=== PATIENT | male | born 1945 | race Caucasian/White ===

== ENCOUNTER → 2017-08-02 10:50 | Outpatient (CLI) | payer MEDICARE, OTHER, SELFPAY ==
[2017-08-02 13:10] LABS: BUN Creatinine Ratio 30.8 (6-22); Calcium 10.1 mg/dL (8.4-10.2); Estimated Glomerular Filt Rate 59.5 mL/min (>60); Glucose 169 mg/dL (80-110); HEMOLYSIS < 15 (0-50); Sodium 141 mmol/L (137-145)
[2017-08-02 13:19] LABS: Potassium 5.5 mmol/L (3.4-5.1)
== END ==
PROVIDERS: Visit Provider Urology
DX: E13.9 Other specified diabetes mellitus without complications (principal)
CPT/HCPCS: 36415; 80048

== ENCOUNTER → 2017-08-03 08:38 | Outpatient (CLI) | payer MEDICARE, OTHER, SELFPAY ==
--- NOTE | 2017-08-03 | DI.CT.S_ITS ---
PROCEDURE: CT ABDOMEN PELVIS WO/W CON INDICATIONS: GROSS HEMATURIA TECHNIQUE: Optional 5 mm thick noncontrast images acquired from the diaphragm to the symphysis pubis. After the administration of intravenous contrast, 5 mm thick images acquired from the diaphragm to the symphysis pubis after a 10-minute delay. 2 mm thick coronal and sagittal reformats were then performed of the kidneys and ureters. For radiation dose reduction, the following was used: automated exposure control, adjustment of mA and/or kV according to patient size. COMPARISON: None. FINDINGS: Image quality: Excellent. Lung bases: Lung bases are clear. Heart size is normal. Urinary system: Both kidneys are normal in size, without hydronephrosis on pre-contrast images. There is a finding of bilateral nonobstructive renal collecting system calculi, punctate at the lower third collecting system on the right but measuring up to 8 mm at the lower third collecting system on the left. Additional calculi are paired at the posterior calyx of the left mid kidney measuring 3 mm and 5 mm respectively. Additional punctate calculi are seen more superiorly within the medial and posterior calyces of the upper third of the left kidney. No perinephric fat stranding. There is normal bilateral renal enhancement. Renal calyces appear normal in morphology when filled with contrast. Opacified portions of both ureters demonstrate normal caliber. Bladder wall thickness is normal. No calcified bladder stones. Other solid organs: Liver is normal in size and enhancement. Gallbladder appears surgically absent. Biliary system is non dilated. Pancreas enhances normally. Spleen is normal in size and enhancement. No adrenal nodules. Peritoneum and bowel: Bowel loops demonstrate normal wall thickness and caliber. No free fluid or air. Nodes and vessels: No retroperitoneal or mesenteric adenopathy by size criteria. Aorta and inferior vena cava are normal in size. Abdominal wall: No ventral hernias. Pelvis: No pathologic free pelvic fluid. No inguinal hernias or adenopathy. Bones: No suspicious bony lesions. No vertebral body compression fractures. IMPRESSION: Bilateral renal calculi none of which appear obstructed if but which may be the etiology of the gross hematuria clinically reported. A renal cortical mass lesion is not found but there are several renal cortical cysts bilaterally, greater on the right than the left. A urothelial mass lesion is not seen. Note is made of radiation therapy seed implants within the prostate gland, without associated adenopathy or evidence of osseous metastatic disease. Dictated by: Johnathon Quiñonez M.D. on 08/03/2017 at 15:37 Approved by: Johnathon Quiñonez M.D. on 08/03/2017 at 15:40
== END ==
PROVIDERS: Visit Provider Family Medicine
DX: N20.0 Calculus of kidney (principal)
CPT/HCPCS: 74178; Q9967

== ENCOUNTER → 2017-09-26 14:25 | Outpatient (CLI) | payer MEDICARE, OTHER, SELFPAY ==
--- NOTE | 2017-09-26 | DI.RAD.S_ITS ---
PROCEDURE: XR ABDOMEN 1V INDICATIONS: KIDNEY CALCULLUS TECHNIQUE: One view of the abdomen acquired. COMPARISON: [facility], CT, CT ABDOMEN PELVIS WO/W CON, 08/03/2017, 8:55. FINDINGS: Surgical changes and devices: Cholecystectomy and prostate brachytherapy Bowel: Bowel gas pattern is normal. Soft tissues: No right renal calculi identified. There are small calcifications overlying the upper pole of the left kidney and a 7 mm calcification overlying the lower pole. Visualized solid organ contours appear normal in size. Bones: No suspicious bony lesions. IMPRESSION: Left nephrolithiasis Dictated by: Mitchell Salazar M.D. on 09/26/2017 at 14:47 Approved by: Mitchell Salazar M.D. on 09/26/2017 at 14:50
== END ==
PROVIDERS: Visit Provider Urology
DX: N20.0 Calculus of kidney (principal)
CPT/HCPCS: 74018

== ENCOUNTER → 2017-11-15 09:56 | Outpatient (CLI) | payer MEDICARE, OTHER, SELFPAY ==
--- NOTE | 2017-11-15 | DI.RAD.S_ITS ---
PROCEDURE: XR ABDOMEN 1V INDICATIONS: KIDNEY CALCULAS TECHNIQUE: One view of the abdomen acquired. COMPARISON: [facility], CT, CT ABDOMEN PELVIS WO/W CON, 08/03/2017, 8:55. [facility], CR, XR ABDOMEN 1V, 09/26/2017, 14:09. FINDINGS: Surgical changes and devices: The cholecystectomy clips and prosthetic metallic implants are noted. Bowel: Bowel gas pattern is normal. Soft tissues: Calcific densities projecting to the tear of the left kidney compatible with renal stones. Compared to the last exam on 09/26/2017, there is no significant change. Visualized solid organ contours appear normal in size. Bones: No suspicious bony lesions. Mild degenerative disc disease in the lower lumbar spine. IMPRESSION: Nephrolithiasis of the left kidney, minimally changed. Dictated by: Trina Garay M.D. on 11/15/2017 at 16:28 Approved by: Trina Garay M.D. on 11/15/2017 at 16:30
== END ==
PROVIDERS: Visit Provider Urology
DX: N20.0 Calculus of kidney (principal)
CPT/HCPCS: 74018

== ENCOUNTER → 2018-08-30 16:01 | Outpatient (CLI) | payer MEDICARE, OTHER, SELFPAY ==
[2018-08-30 17:22] LABS: BUN Creatinine Ratio 25.7 (6-22); Blood Urea Nitrogen 36 mg/dL (9-20); Calcium 10.4 mg/dL (8.4-10.2); Carbon Dioxide 27 mmol/L (22-32); Chloride 105 mmol/L (98-107); Estimated Glomerular Filt Rate 49.7 mL/min (>60); Glucose 177 mg/dL (80-110); HEMOLYSIS < 15 (0-50); Potassium 5.1 mmol/L (3.4-5.1); Sodium 140 mmol/L (137-145)
== END ==
PROVIDERS: Visit Provider Family Medicine
DX: E87.5 Hyperkalemia (principal)
CPT/HCPCS: 36415; 80048

== ENCOUNTER → 2019-04-13 14:04 | Outpatient (CLI) | payer MEDICARE, OTHER, SELFPAY ==
--- NOTE | 2019-04-13 | DI.US.S_ITS ---
PROCEDURE: US RENAL COMPLETE INDICATIONS: KIDNEY STONES TECHNIQUE: Real-time scanning was performed of the kidneys and bladder, with image documentation. COMPARISON: [facility], CT, CT ABDOMEN PELVIS WO/W CON, 08/03/2017, 8:55. FINDINGS: Kidneys: Kidneys are normal in size. Right kidney measures 13.1 cm long; left kidney measures 12.1 cm long. Right renal cortical thickness is 2.3 cm; left renal cortical thickness is 2.1 cm. Renal cortical echotexture is normal. No hydronephrosis bilaterally or nephrolithiasis on the right but there is a finding of 2 separate renal calculi without hydronephrosis on the left, involving the lower third collecting system measuring up to 1.4 cm in the superior third collecting system measuring up to 1.2 cm. No suspicious solid mass lesions. Bladder: Pre-void bladder volume is 99 mL. Post-void residual is slightly larger because the patient was unable to voluntarily void. Pre-void images demonstrate no intraluminal masses or stones. On pre-void images, neither ureteral jets are noted with color Doppler interrogation. (Of note, ureteral jets may not be detectable in up to 25% of cases due to insufficient differences in specific gravity between ureteral and bladder urine). Miscellaneous: No free pelvic fluid. IMPRESSION: 2 stones are present without obstruction involving the collecting system of the left kidney. No hydronephrosis bilaterally. Note is made of no identifiable stones at the right collecting system are not the 2 on the left range in size from 1.2-1.4 cm. The bladder is not distended at the beginning of the study, the patient could not voluntarily void. Dictated by: Johnathon Quiñonez M.D. on 04/13/2019 at 16:57 Approved by: Johnathon Quiñonez M.D. on 04/13/2019 at 17:03
== END ==
PROVIDERS: PCP Family Medicine; Visit Provider Urology
DX: N20.0 Calculus of kidney (principal); N28.89 Other specified disorders of kidney and ureter
CPT/HCPCS: 76770

== ENCOUNTER → 2019-05-04 16:50 | Outpatient (CLI) | payer MEDICARE, OTHER, SELFPAY ==
[2019-05-04 19:19] LABS: Cholesterol 155 mg/dL (140-199); HDL Cholesterol 27 mg/dL (40-60); LDL Cholesterol Calculated 58 mg/dL (<100); Triglycerides 348 mg/dL (35-150)
== END ==
PROVIDERS: Family Provider Internal Medicine Cardiovascular Disease; PCP Family Medicine; Referring Provider Internal Medicine Cardiovascular Disease; Visit Provider Internal Medicine Cardiovascular Disease
DX: E78.5 Hyperlipidemia, unspecified (principal)
CPT/HCPCS: 36415; 80061

== ENCOUNTER → 2019-05-08 14:58 | Outpatient (CLI) | payer MEDICARE, OTHER, SELFPAY ==
--- NOTE | 2019-05-08 | DI.CT.S_ITS ---
PROCEDURE: CT ABDOMEN PELVIS WO/W CON INDICATIONS: Cyst of kidney, aquired TECHNIQUE: Optional 5 mm thick noncontrast images acquired from the diaphragm to the symphysis pubis. After the administration of intravenous contrast, 5 mm thick images acquired from the diaphragm to the symphysis pubis after a 10-minute delay. 2 mm thick coronal and sagittal reformats were then performed of the kidneys and ureters. For radiation dose reduction, the following was used: automated exposure control, adjustment of mA and/or kV according to patient size. COMPARISON: [facility], CT, CT ABDOMEN PELVIS WO/W CON, 08/03/2017, 8:55. FINDINGS: Image quality: Excellent. Lung bases: Lung bases are clear. Heart size is normal. Urinary system: Both kidneys are normal in size, without hydronephrosis. There is a finding of bilateral nephrolithiasis on the pre-contrast images, equivalent to that previously present in July of 2017. None of the visualized calculi appear obstructive. The largest calculus is located within the lower third collecting system of the left kidney. Measuring up to 1 cm. Several bilateral renal cortical cysts are again seen including a hyperdense cyst located at the posterolateral cortex of the right mid kidney, best seen on postcontrast imaging series 3 image 87. No left-sided perinephric fat stranding but there is stranding on the right which may indicate recent passage of a calculus. There is normal bilateral renal enhancement. Renal calyces appear normal in morphology when filled with contrast. Opacified portions of both ureters demonstrate normal caliber. Bladder wall thickness is normal. No calcified bladder stones. Other solid organs: Liver is normal in size and enhancement. Gallbladder has been previously resected. Biliary system is non dilated. Pancreas enhances normally. Spleen is normal in size and enhancement. No adrenal nodules. Peritoneum and bowel: Bowel loops demonstrate normal wall thickness and caliber. No free fluid or air. Nodes and vessels: No retroperitoneal or mesenteric adenopathy by size criteria. Aorta and inferior vena cava are normal in size. Abdominal wall: No ventral hernias. Pelvis: No pathologic free pelvic fluid. No inguinal hernias or adenopathy. Prostate gland radiation therapy seeds again noted within the pelvis which is normal in size. Bones: No suspicious bony lesions. No vertebral body compression fractures. IMPRESSION: 1. Bilateral nonobstructive renal collecting system calculi, the largest of which is located on the left measuring up to 1 cm. 2. There is a moderate degree of perinephric edema at the right kidney, none on the left. The appearance raises the question of whether there has been recent passage of a calculus on the right producing that appearance. Renal inflammation of any etiology could produce such an appearance, however. 3. Prostate radiation therapy seed implants noted at the midline of the low pelvis, without evidence of associated adenopathy or osseous metastatic disease. Dictated by: Johnathon Quiñonez M.D. on 05/08/2019 at 17:19 Approved by: Johnathon Quiñonez M.D. on 05/08/2019 at 17:27
== END ==
PROVIDERS: Family Provider Internal Medicine Cardiovascular Disease; PCP Family Medicine; Referring Provider Urology; Visit Provider Urology
DX: N28.1 Cyst of kidney, acquired (principal); N20.0 Calculus of kidney
CPT/HCPCS: 36415; 74178; 82565; Q9967

== ENCOUNTER → 2019-12-04 14:29 | Outpatient (CLI) | payer MEDICARE, OTHER, SELFPAY ==
--- NOTE | 2019-12-04 | DI.US.S_ITS ---
PROCEDURE: US RENAL COMPLETE INDICATIONS: KIDNEY STONE TECHNIQUE: Real-time scanning was performed of the kidneys and bladder, with image documentation. Note: Exam is somewhat limited due to body habitus and bowel gas. COMPARISON: [facility], CT, CT ABDOMEN PELVIS WO/W CON, 08/03/2017, 8:55. [facility], CT, CT ABDOMEN PELVIS WO/W CON, 05/08/2019, 15:42. [facility], US, US RENAL COMPLETE, 04/13/2019, 14:22. FINDINGS: Kidneys: Kidneys are normal in size. Right kidney measures 13.9 cm long; left kidney measures 13.3 cm long. Right renal cortical thickness is 1.9 cm; left renal cortical thickness is 1.7 cm. Right kidney midpole hypoechoic cyst measuring at 2.2 x 2.2 x 1.9 cm. No internal blood flow is seen. Right kidney inferior pole hypoechoic cyst measuring 2 x 1.9 x 1.9 cm. No internal blood flow. Left mid kidney cortical cyst measuring 1.2 x 1.2 x 1 cm. No internal vascularity. No hydronephrosis. A 1.1 cm and 1.7 cm calcification at the inferior and superior pole of the left kidney respectively. Bladder: Pre-void bladder volume is 378 mL. Post-void residual is 112 mL. Pre-void images demonstrate no intraluminal masses or stones. On pre-void images, bilateral ureteral jets are noted with color Doppler interrogation. (Of note, ureteral jets may not be detectable in up to 25% of cases due to insufficient differences in specific gravity between ureteral and bladder urine). Miscellaneous: No free pelvic fluid. IMPRESSION: Exam is somewhat limited due to acoustic windows and body habitus. 1. No hydronephrosis. 2. Postvoid residual 112 cc. 3. Left kidney stones are again seen. Previously seen right kidney stone is not excluded. -if clinically indicated noncontrast CT could be performed. 4. Small mildly complex cysts bilaterally. These appeared similar on the prior CTs from April 2019 and July 2017. -Consider continued surveillance with CT or MRI. Dictated by: Dennis Petty M.D. on 12/05/2019 at 13:16 Approved by: Dennis Petty M.D. on 12/05/2019 at 13:27
== END ==
PROVIDERS: Family Provider Internal Medicine Cardiovascular Disease; PCP Family Medicine; Referring Provider Urology; Visit Provider Urology
DX: N20.0 Calculus of kidney (principal); N28.1 Cyst of kidney, acquired
CPT/HCPCS: 76770

== ENCOUNTER → 2020-01-09 11:53 | Outpatient (CLI) | payer MEDICARE, OTHER, SELFPAY ==
[2020-01-09 13:18] LABS: Hemoglobin A1C% w Est Avg Glu 7.9 % (4.0-6.0)
[2020-01-09 14:04] LABS: BUN Creatinine Ratio 22.4 (6-22); Blood Urea Nitrogen 37 mg/dL (9-20); Calcium 9.7 mg/dL (8.4-10.2); Carbon Dioxide 27 mmol/L (22-32); Chloride 105 mmol/L (98-107); Estimated Glomerular Filt Rate 40.9 mL/min (>60); Glucose 99 mg/dL (80-110); HEMOLYSIS < 15 (0-50); Potassium 4.5 mmol/L (3.4-5.1); Sodium 140 mmol/L (137-145)
[2020-01-09 16:05] LABS: Creatinine Urine Random 82.2 mg/dL
[2020-01-09 16:20] LABS: Microalbumi Creatinin Ratio Ur 587.5 ug/mg CR (<30); Microalbumin Urine Random 48.3 mg/dL (0-1.6)
== END ==
PROVIDERS: Family Provider Internal Medicine Cardiovascular Disease; PCP Family Medicine; Referring Provider Family Medicine; Visit Provider Family Medicine
DX: E11.9 Type 2 diabetes mellitus without complications (principal); R80.9 Proteinuria, unspecified; Z79.4 Long term (current) use of insulin
CPT/HCPCS: 36415; 80048; 82043; 82570; 83036

== ENCOUNTER → 2020-02-19 09:24 | Outpatient (CLI) | payer MEDICARE, OTHER, SELFPAY ==
[2020-02-19 09:55] LABS: Bacteria Urine None Seen; RBC Urine None Seen (0-5/HPF); WBC Urine None Seen (0-5/HPF)
[2020-02-19 12:15] LABS: Hematocrit 38.9 % (41-53); Hemoglobin 13.1 g/dL (13.5-17.5)
[2020-02-19 12:47] LABS: Blood Urea Nitrogen 37 mg/dL (9-20); Carbon Dioxide 28 mmol/L (22-32); Chloride 102 mmol/L (98-107); Estimated Glomerular Filt Rate 37.9 mL/min (>60); Glucose 121 mg/dL (80-110); HEMOLYSIS < 15 (0-50); Potassium 4.2 mmol/L (3.4-5.1); Sodium 138 mmol/L (137-145)
[2020-02-19 13:09] LABS: Appearance Urine UA CLEAR; Bilirubin Urine UA NEGATIVE (NEGATIVE); Color Urine UA YELLOW; Glucose Urine UA NEGATIVE (Negative); Ketones Urine UA NEGATIVE (NEGATIVE); Leukocyte Esterase Urine UA NEGATIVE (NEGATIVE); Nitrite Urine UA NEGATIVE (Negative); Occult Blood Urine UA NEGATIVE (Negative); Protein Urine UA 2+ (Negative); Specific Gravity Urine UA 1.025 (1.000-1.035); Urobilinogen Urine UA 0.2 E.U./dL (0.2); pH Urine UA 5.5 (4.5-8.0)
[2020-02-19 13:28] LABS: Culture Indicated Urine Cult Not Indicated; Squamous Epithelial Cell Urine 1-5 /HPF (0-5/HPF)
[2020-02-19 14:43] LABS: Creatinine Urine Random 129.5 mg/dL; Protein (Total) Urine Random 94 mg/dL (0-12); Protein Creatinine Ratio Urine 0.72 GRAM/24H
[2020-02-20 10:03] LABS: Parathyroid Hormone Int 41 pg/mL (15-65)
== END ==
PROVIDERS: Family Provider Internal Medicine Cardiovascular Disease; PCP Family Medicine; Referring Provider Student in an Organized Health Care Education/Training Program; Visit Provider Student in an Organized Health Care Education/Training Program
DX: N05.9 Unspecified nephritic syndrome with unspecified morphologic changes (principal); N30.00 Acute cystitis without hematuria; R80.9 Proteinuria, unspecified; D64.9 Anemia, unspecified; N25.81 Secondary hyperparathyroidism of renal origin
CPT/HCPCS: 36415; 80048; 81001; 82570; 83970; 84156; 85014; 85018; 87086

== ENCOUNTER → 2020-04-30 14:05 | Outpatient (CLI) | payer MEDICARE, OTHER, SELFPAY ==
[2020-04-30 16:10] LABS: Hematocrit 40.6 % (41-53); Hemoglobin 13.4 g/dL (13.5-17.5)
[2020-04-30 16:24] LABS: BUN Creatinine Ratio 24.4 (6-22); Blood Urea Nitrogen 41 mg/dL (9-20); Calcium 9.6 mg/dL (8.4-10.2); Carbon Dioxide 30 mmol/L (22-32); Chloride 100 mmol/L (98-107); Glucose 142 mg/dL (80-110); HEMOLYSIS 28 (0-50); Potassium 4.6 mmol/L (3.4-5.1); Sodium 138 mmol/L (137-145)
[2020-04-30 17:33] LABS: Creatinine Urine Random 33.8 mg/dL; Protein (Total) Urine Random 40 mg/dL (0-12); Protein Creatinine Ratio Urine 1.18 GRAM/24H
== END ==
PROVIDERS: Family Provider Internal Medicine Cardiovascular Disease; PCP Family Medicine; Referring Provider Student in an Organized Health Care Education/Training Program; Visit Provider Student in an Organized Health Care Education/Training Program
DX: R80.9 Proteinuria, unspecified (principal); N05.9 Unspecified nephritic syndrome with unspecified morphologic changes; D64.9 Anemia, unspecified
CPT/HCPCS: 36415; 80048; 82570; 84156; 85014; 85018

== ENCOUNTER → 2020-05-13 13:40 | Outpatient (CLI) | payer MEDICARE, OTHER, SELFPAY ==
--- NOTE | 2020-05-13 | DI.CT.S_ITS ---
PROCEDURE: CT CHEST HIGH RESOLUTION INDICATIONS: Interstitial pulmonary disease, unspecified TECHNIQUE: Noncontrast 1.0 and 5.0 mm thick contiguous axial sections from the pulmonary apex to the posterior costophrenic angles, with 7 mm thick coronal and sagittal MIP reformats. 1 mm thick dynamic expiratory images acquired through the upper, mid, and lower lungs. 1.0 mm thick axial sections acquired from the aracelis to the posterior costophrenic angles in the prone end-inspiration position. For radiation dose reduction, the following was used: automated exposure control, adjustment of mA and/or kV according to patient size. COMPARISON: [facility], CT, CT ABDOMEN PELVIS WO/W CON, 08/03/2017, 8:55. FINDINGS: Image quality: Excellent. Lungs: There is a mild appearance of emphysematous changes. 3 mm lateral left upper lobe pleural nodule is present on series 3, image 134. 4 mm nodule is present in the right lower lobe on series 3, image 180. 3 mm right lower lobe nodule on series 3, image 212 is unchanged compared to 2018. There is a mildly prominent appearance of reticular change within the bases bilaterally as well as the lateral aspect of the right middle lobe. Minimal appearance of scattered bronchial wall thickening is present. Pleura: No pleural effusions or pneumothorax. Mediastinum: Heart size is normal. No pericardial effusion. Thoracic aorta demonstrates mild aneurysmal dilation within the ascending portion measuring 44 mm. Esophagus is normal in caliber. Bones and chest wall: No suspicious bony lesions. No vertebral body compression fractures. Abdomen: Visualized upper abdominal solid organs and bowel loops appear normal. IMPRESSION: 1. Emphysematous changes with areas of reticular opacities as to cry be above, suggestive of fibrotic change. 2. Subcentimeter nodules as above without priors available for comparison except as noted. There overall nonspecific and recommend interval follow-up below based on size and initial visualization date. 3. Aneurysmal dilation of the ascending thoracic aorta. Recommend continued interval follow-up to document stability, given no priors are available for comparison. Fleischner Society criteria for SOLID lung nodule followup. Nodule size (mm)Low-risk patientHigh-risk patient<6 (single or multiple)No routine followup.Optional CT at 12 months. 6-8 (single or multiple)CT at 6-12 months, then optional CT at 18-24 mo.CT at 6-12 months, then CT at 18-24 months. >8 (single)CT, PET-CT, or biopsy at 3 months. Same as for low-risk pts. >8 (multiple)CT at 3-6 months, then optional CT at 18-24 mo.CT at 3-6 months, then CT at 18-24 months. Recommendations do not apply to lung cancer screening, patients with immunosuppression, or patients with known primary cancer. Dictated by: Andreina Foster M.D. on 05/13/2020 at 18:05 Approved by: Andreina Foster M.D. on 05/13/2020 at 18:08
== END ==
PROVIDERS: Family Provider Internal Medicine Cardiovascular Disease; PCP Family Medicine; Referring Provider Internal Medicine Pulmonary Disease; Visit Provider Internal Medicine Pulmonary Disease
DX: J84.9 Interstitial pulmonary disease, unspecified (principal); R91.8 Other nonspecific abnormal finding of lung field; I71.2 Thoracic aortic aneurysm, without rupture
CPT/HCPCS: 71250

== ENCOUNTER → 2020-06-04 18:10 | Outpatient (CLI) | payer MEDICARE, OTHER, SELFPAY | PROVIDERS: Family Provider Internal Medicine Cardiovascular Disease; PCP Family Medicine; Visit Provider Student in an Organized Health Care Education/Training Program | DX: L02.416 Cutaneous abscess of left lower limb (principal); L03.116 Cellulitis of left lower limb | CPT/HCPCS: 87070; 87075; 87077; 87147; 87186; 87205 ==

== ENCOUNTER → 2020-06-26 09:24 | Outpatient (CLI) | payer MEDICARE, OTHER, SELFPAY | PROVIDERS: Family Provider Internal Medicine Cardiovascular Disease; PCP Family Medicine; Referring Provider Physician Assistant; Visit Provider Family Medicine | DX: I87.2 Venous insufficiency (chronic) (peripheral) (principal); N18.31 Chronic kidney disease, stage 3a; E11.22 Type 2 diabetes mellitus with diabetic chronic kidney disease; R60.0 Localized edema; Z87.891 Personal history of nicotine dependence; I12.9 Hypertensive chronic kidney disease with stage 1 through stage 4 chronic kidney disease, or unspecified chronic kidney disease | CPT/HCPCS: 99204; 99213 ==

== ENCOUNTER → 2020-08-30 09:13 | Outpatient (CLI) | payer MEDICARE, OTHER, SELFPAY ==
[2020-08-30 10:36] LABS: BUN Creatinine Ratio 21.8 (6-22); Blood Urea Nitrogen 53 mg/dL (9-20); Calcium 9.9 mg/dL (8.4-10.2); Carbon Dioxide 26 mmol/L (22-32); Chloride 100 mmol/L (98-107); Estimated Glomerular Filt Rate 26.1 mL/min (>60); Glucose 108 mg/dL (80-110); HEMOLYSIS 20 (0-50); Sodium 136 mmol/L (137-145)
[2020-08-30 10:38] LABS: Creatinine Urine Random 114.1 mg/dL; Protein (Total) Urine Random 18 mg/dL (0-12); Protein Creatinine Ratio Urine 0.15 GRAM/24H
[2020-08-30 10:39] LABS: Potassium 5.6 mmol/L (3.4-5.1)
[2020-08-31 17:48] LABS: Parathyroid Hormone Int 35 pg/mL (15-65)
== END ==
PROVIDERS: Family Provider Internal Medicine Cardiovascular Disease; PCP Family Medicine; Referring Provider Student in an Organized Health Care Education/Training Program; Visit Provider Student in an Organized Health Care Education/Training Program
DX: N05.9 Unspecified nephritic syndrome with unspecified morphologic changes (principal); N25.81 Secondary hyperparathyroidism of renal origin; R80.9 Proteinuria, unspecified
CPT/HCPCS: 36415; 80048; 82570; 83970; 84156

== ENCOUNTER → 2020-09-05 16:26 | Outpatient (CLI) | payer MEDICARE, OTHER, SELFPAY ==
[2020-09-05 17:51] LABS: BUN Creatinine Ratio 22.8 (6-22); Blood Urea Nitrogen 55 mg/dL (9-20); Calcium 9.5 mg/dL (8.4-10.2); Carbon Dioxide 27 mmol/L (22-32); Chloride 101 mmol/L (98-107); Estimated Glomerular Filt Rate 26.4 mL/min (>60); Glucose 143 mg/dL (80-110); HEMOLYSIS < 15 (0-50); Potassium 4.8 mmol/L (3.4-5.1); Sodium 139 mmol/L (137-145)
== END ==
PROVIDERS: Family Provider Internal Medicine Cardiovascular Disease; PCP Family Medicine; Referring Provider Student in an Organized Health Care Education/Training Program; Visit Provider Student in an Organized Health Care Education/Training Program
DX: N05.9 Unspecified nephritic syndrome with unspecified morphologic changes (principal)
CPT/HCPCS: 36415; 80048

== ENCOUNTER → 2020-09-22 07:10 | Outpatient (CLI) | payer MEDICARE, OTHER, SELFPAY ==
[2020-09-22 08:11] LABS: Hematocrit 36.8 % (41-53); Hemoglobin 12.2 g/dL (13.5-17.5)
[2020-09-22 08:41] LABS: BUN Creatinine Ratio 24.8 (6-22); Blood Urea Nitrogen 39 mg/dL (9-20); Carbon Dioxide 27 mmol/L (22-32); Chloride 105 mmol/L (98-107); Estimated Glomerular Filt Rate 43.3 mL/min (>60); Glucose 159 mg/dL (80-110); HEMOLYSIS < 15 (0-50); Potassium 4.9 mmol/L (3.4-5.1); Sodium 140 mmol/L (137-145)
== END ==
PROVIDERS: Family Provider Internal Medicine Cardiovascular Disease; PCP Family Medicine; Referring Provider Student in an Organized Health Care Education/Training Program; Visit Provider Student in an Organized Health Care Education/Training Program
DX: N05.9 Unspecified nephritic syndrome with unspecified morphologic changes (principal); D64.9 Anemia, unspecified
CPT/HCPCS: 36415; 80048; 85014; 85018

== ENCOUNTER → 2021-03-05 09:11 | Outpatient (CLI) | payer MEDICARE, OTHER, SELFPAY ==
--- NOTE | 2021-03-05 | DI.US.S_ITS ---
PROCEDURE: US RENAL COMPLETE INDICATIONS: Calculus of kidney TECHNIQUE: Real-time scanning was performed of the kidneys and bladder, with image documentation. COMPARISON: [facility], CT, CT ABDOMEN PELVIS WO/W CON, 05/08/2019, 15:42. [facility], US, US RENAL COMPLETE, 12/04/2019, 14:57. [facility], , US RENAL COMPLETE, 04/13/2019, 14:22. FINDINGS: Kidneys: Kidneys are normal in size. Right kidney measures 13.3 cm long; left kidney measures 12.1 cm long. Right renal cortical thickness is 1.8 cm; left renal cortical thickness is 1.9 cm. Renal cortical echotexture is normal. No hydronephrosis. Several small right renal cysts. Superior pole 2.6 cm. Inferior pole 2.4 cm. Medial simple 5.5 cm. Left kidney mid pole hypoechoic cyst measuring 1.4 cm. Several left kidney stones measuring 1.4 cm, 1.5 cm, 1.5 cm. Bladder: Pre-void bladder volume is 647 mL. Post-void residual is 0 mL. Pre-void images demonstrate no intraluminal masses or stones. Ureteral jets are not seen. Miscellaneous: No free pelvic fluid. IMPRESSION: 1. At least 3 left Kidney stones are seen. A larger stone measuring 1.5 cm. 2. Right kidney hypoechoic cysts x2 and 1 on the left. Largest measuring 2.6 cm. The cysts on the right appear to be slightly increased in size compared to the prior ultrasound. -Recommend further evaluation with renal protocol CT or MRI to evaluate for enhancement. 3. No significant postvoid residual demonstrated. Dictated by: Dennis Petty M.D. on 03/05/2021 at 10:32 Approved by: Dennis Petty M.D. on 03/05/2021 at 10:45
== END ==
PROVIDERS: Family Provider Internal Medicine Cardiovascular Disease; PCP Family Medicine; Referring Provider Urology; Visit Provider Urology
DX: N20.0 Calculus of kidney (principal); N28.1 Cyst of kidney, acquired
CPT/HCPCS: 76770

== ENCOUNTER → 2021-05-28 16:20 | Outpatient (CLI) | payer MEDICARE, OTHER, SELFPAY ==
[2021-05-28 17:23] LABS: Hematocrit 39.5 % (41-53); Hemoglobin 13.2 g/dL (13.5-17.5)
[2021-05-28 17:50] LABS: Alanine Aminotransferase 30 IU/L (<50); Albumin 4.1 g/dL (3.5-5.0); Albumin Globulin Ratio 1.3 (1.0-2.8); Alkaline Phosphatase 105 U/L (38-126); Aspartate Aminotransferase 30 IU/L (17-59); BUN Creatinine Ratio 16.8 (6-22); Bilirubin Total 0.7 mg/dL (0.2-1.3); Blood Urea Nitrogen 23 mg/dL (9-20); Calcium 9.3 mg/dL (8.4-10.2); Carbon Dioxide 32 mmol/L (22-32); Chloride 102 mmol/L (98-107); Estimated Glomerular Filt Rate 50.5 mL/min (>60); Globulin 3.1 g/dL (1.7-4.1); Glucose 162 mg/dL (80-110); HEMOLYSIS < 15 (0-50); Potassium 4.6 mmol/L (3.4-5.1); Sodium 139 mmol/L (137-145); Total Protein 7.2 g/dL (6.3-8.2)
[2021-05-28 17:51] LABS: Creatinine Urine Random 75.8 mg/dL; Protein (Total) Urine Random 51 mg/dL (0-12); Protein Creatinine Ratio Urine 0.67 GRAM/24H
[2021-05-29 10:19] LABS: Parathyroid Hormone Int 63 pg/mL (15-65)
== END ==
PROVIDERS: Family Provider Internal Medicine Cardiovascular Disease; PCP Family Medicine; Referring Provider Student in an Organized Health Care Education/Training Program; Visit Provider Student in an Organized Health Care Education/Training Program
DX: E11.22 Type 2 diabetes mellitus with diabetic chronic kidney disease (principal); N18.32 Chronic kidney disease, stage 3b; Z79.4 Long term (current) use of insulin; N25.81 Secondary hyperparathyroidism of renal origin; D64.9 Anemia, unspecified; N05.9 Unspecified nephritic syndrome with unspecified morphologic changes; R80.9 Proteinuria, unspecified
CPT/HCPCS: 36415; 80053; 82570; 83036; 83970; 84156; 85014; 85018

== ENCOUNTER → 2021-10-06 16:52 | Outpatient (CLI) | payer MEDICARE, OTHER, SELFPAY ==
[2021-10-06 17:42] LABS: BUN Creatinine Ratio 22.9 (6-22); Blood Urea Nitrogen 36 mg/dL (9-20); Calcium 8.9 mg/dL (8.4-10.2); Carbon Dioxide 28 mmol/L (22-32); Chloride 103 mmol/L (98-107); Estimated Glomerular Filt Rate 45 mL/min (>60); Glucose 164 mg/dL (80-110); HEMOLYSIS < 15 (0-50); Potassium 4.6 mmol/L (3.4-5.1); Sodium 137 mmol/L (137-145)
[2021-10-06 18:04] LABS: Creatinine Urine Random 97.8 mg/dL; Protein (Total) Urine Random 19 mg/dL (0-12); Protein Creatinine Ratio Urine 0.19 GRAM/24H
== END ==
PROVIDERS: Family Provider Internal Medicine Cardiovascular Disease; Referring Provider Student in an Organized Health Care Education/Training Program; Visit Provider Student in an Organized Health Care Education/Training Program
DX: N05.9 Unspecified nephritic syndrome with unspecified morphologic changes (principal); R80.9 Proteinuria, unspecified
CPT/HCPCS: 36415; 80048; 82570; 84156

== ENCOUNTER → 2021-11-17 12:36 | Outpatient (CLI) | payer MEDICARE, OTHER, SELFPAY ==
[2021-11-17 14:31] LABS: BUN Creatinine Ratio 19.9 (6-22); Blood Urea Nitrogen 32 mg/dL (9-20); Calcium 8.7 mg/dL (8.4-10.2); Carbon Dioxide 23 mmol/L (22-32); Chloride 106 mmol/L (98-107); Estimated Glomerular Filt Rate 44 mL/min (>60); Glucose 127 mg/dL (80-110); HEMOLYSIS < 15 (0-50); Potassium 4.7 mmol/L (3.4-5.1); Sodium 138 mmol/L (137-145)
== END ==
PROVIDERS: Family Provider Internal Medicine Cardiovascular Disease; Referring Provider Student in an Organized Health Care Education/Training Program; Visit Provider Student in an Organized Health Care Education/Training Program
DX: N05.9 Unspecified nephritic syndrome with unspecified morphologic changes (principal)
CPT/HCPCS: 36415; 80048

== ENCOUNTER → 2022-03-24 10:37 | Outpatient (CLI) | payer MEDICARE, OTHER, SELFPAY ==
[2022-03-24 11:51] LABS: Hematocrit 46.3 % (41-53); Hemoglobin 15.1 g/dL (13.5-17.5)
[2022-03-24 12:16] LABS: Blood Urea Nitrogen 27 mg/dL (9-20); Calcium 9.3 mg/dL (8.4-10.2); Carbon Dioxide 29 mmol/L (22-32); Chloride 102 mmol/L (98-107); Estimated Glomerular Filt Rate 51 mL/min (>60); Glucose 143 mg/dL (80-110); HEMOLYSIS < 15 (0-50); Potassium 4.7 mmol/L (3.4-5.1); Sodium 142 mmol/L (137-145)
[2022-03-24 12:18] LABS: Protein (Total) Urine Random 78 mg/dL (0-12); Protein Creatinine Ratio Urine 1.04 GRAM/24H
[2022-03-26 11:08] LABS: Parathyroid Hormone Int 70 pg/mL (15-65)
== END ==
PROVIDERS: Family Provider Internal Medicine Cardiovascular Disease; Referring Provider Student in an Organized Health Care Education/Training Program; Visit Provider Student in an Organized Health Care Education/Training Program
DX: N05.9 Unspecified nephritic syndrome with unspecified morphologic changes (principal); D64.9 Anemia, unspecified; R80.9 Proteinuria, unspecified; N25.81 Secondary hyperparathyroidism of renal origin
CPT/HCPCS: 36415; 80048; 82570; 83970; 84156; 85014; 85018

== ENCOUNTER → 2022-05-03 10:59 | Outpatient (CLI) | payer MEDICARE, OTHER, SELFPAY ==
[2022-05-03 12:50] LABS: BUN Creatinine Ratio 26.2 (6-22); Blood Urea Nitrogen 43 mg/dL (9-20); Calcium 9.5 mg/dL (8.4-10.2); Carbon Dioxide 30 mmol/L (22-32); Chloride 99 mmol/L (98-107); Estimated Glomerular Filt Rate 43 mL/min (>60); Glucose 120 mg/dL (80-110); HEMOLYSIS < 15 (0-50); Potassium 4.9 mmol/L (3.4-5.1); Sodium 138 mmol/L (137-145)
[2022-05-03 15:02] LABS: Creatinine Urine Random 84.5 mg/dL; Protein (Total) Urine Random 30 mg/dL (0-12); Protein Creatinine Ratio Urine 0.35 GRAM/24H
== END ==
PROVIDERS: Family Provider Internal Medicine Cardiovascular Disease; Referring Provider Student in an Organized Health Care Education/Training Program; Visit Provider Student in an Organized Health Care Education/Training Program
DX: N05.9 Unspecified nephritic syndrome with unspecified morphologic changes (principal); R80.9 Proteinuria, unspecified
CPT/HCPCS: 36415; 80048; 82570; 84156

== ENCOUNTER → 2022-08-02 09:45 | Outpatient (CLI) | payer MEDICARE, OTHER, SELFPAY ==
[2022-08-02 10:20] LABS: Hematocrit 42.3 % (41-53); Hemoglobin 14.5 g/dL (13.5-17.5)
[2022-08-02 10:28] LABS: BUN Creatinine Ratio 22.6 (6-22); Blood Urea Nitrogen 40 mg/dL (9-20); Calcium 9.1 mg/dL (8.4-10.2); Carbon Dioxide 28 mmol/L (22-32); Chloride 104 mmol/L (98-107); Cholesterol 130 mg/dL (140-199); Estimated Glomerular Filt Rate 39 mL/min (>60); Glucose 117 mg/dL (80-110); HDL Cholesterol 27 mg/dL (40-60); HEMOLYSIS < 15 (0-50); LDL Cholesterol Calculated 63 mg/dL (<100); Potassium 4.9 mmol/L (3.4-5.1); Sodium 138 mmol/L (137-145); Triglycerides 199 mg/dL (35-150)
[2022-08-02 11:08] LABS: Creatinine Urine Random 91.8 mg/dL; Protein (Total) Urine Random 35 mg/dL (0-12); Protein Creatinine Ratio Urine 0.38 GRAM/24H
[2022-08-03 03:36] LABS: x Labcorp Estim. Avg Glu (eAG) 137 mg/dL (.); x Labcorp Hemoglobin A1c 6.4 % (4.8-5.6)
[2022-08-04 11:20] LABS: Parathyroid Hormone Int 56 pg/mL (15-65)
== END ==
PROVIDERS: Family Provider Internal Medicine Cardiovascular Disease; Referring Provider Student in an Organized Health Care Education/Training Program; Visit Provider Student in an Organized Health Care Education/Training Program
DX: E11.9 Type 2 diabetes mellitus without complications (principal); N05.9 Unspecified nephritic syndrome with unspecified morphologic changes; D64.9 Anemia, unspecified; E78.5 Hyperlipidemia, unspecified; N25.81 Secondary hyperparathyroidism of renal origin; E03.9 Hypothyroidism, unspecified; R80.9 Proteinuria, unspecified
CPT/HCPCS: 36415; 80048; 80061; 82570; 83036; 83970; 84156; 84443; 85014; 85018

== ENCOUNTER → 2022-09-10 16:30 | Outpatient (CLI) | payer MEDICARE, OTHER, SELFPAY ==
[2022-09-10 17:23] LABS: BUN Creatinine Ratio 17.9 (6-22); Blood Urea Nitrogen 40 mg/dL (9-20); Calcium 9.1 mg/dL (8.4-10.2); Carbon Dioxide 29 mmol/L (22-32); Chloride 100 mmol/L (98-107); Estimated Glomerular Filt Rate 30 mL/min (>60); Glucose 109 mg/dL (80-110); HEMOLYSIS < 15 (0-50); Potassium 5.4 mmol/L (3.4-5.1); Sodium 137 mmol/L (137-145)
[2022-09-10 17:30] LABS: NT-proBNP (BNP-Adult 18+) 106 pg/mL (<450)
== END ==
PROVIDERS: Family Provider Internal Medicine Cardiovascular Disease; Referring Provider Student in an Organized Health Care Education/Training Program; Visit Provider Student in an Organized Health Care Education/Training Program
DX: I50.32 Chronic diastolic (congestive) heart failure (principal); N05.9 Unspecified nephritic syndrome with unspecified morphologic changes
CPT/HCPCS: 36415; 80048; 83880

== ENCOUNTER → 2022-09-15 14:29 | Outpatient (CLI) | payer MEDICARE, OTHER, SELFPAY ==
[2022-09-15 17:35] LABS: HEMOLYSIS < 15 (0-50); Potassium 4.4 mmol/L (3.4-5.1)
== END ==
PROVIDERS: Family Provider Internal Medicine Cardiovascular Disease; Referring Provider Student in an Organized Health Care Education/Training Program; Visit Provider Student in an Organized Health Care Education/Training Program
DX: E87.5 Hyperkalemia (principal)
CPT/HCPCS: 36415; 84132

== ENCOUNTER → 2022-11-16 15:42 | Outpatient (CLI) | payer MEDICARE, OTHER, SELFPAY ==
[2022-11-16 18:09] LABS: BUN Creatinine Ratio 15.1 (6-22); Blood Urea Nitrogen 28 mg/dL (9-20); Calcium 8.8 mg/dL (8.4-10.2); Carbon Dioxide 25 mmol/L (22-32); Chloride 106 mmol/L (98-107); Estimated Glomerular Filt Rate 37 mL/min (>60); Glucose 164 mg/dL (80-110); HEMOLYSIS < 15 (0-50); Potassium 4.6 mmol/L (3.4-5.1); Sodium 139 mmol/L (137-145)
[2022-11-16 19:47] LABS: Creatinine Urine Random 98.7 mg/dL; Protein (Total) Urine Random 18 mg/dL (0-12); Protein Creatinine Ratio Urine 0.18 GRAM/24H
[2022-11-17 10:45] LABS: Parathyroid Hormone Int 69 pg/mL (15-65)
== END ==
PROVIDERS: Family Provider Internal Medicine Cardiovascular Disease; Referring Provider Student in an Organized Health Care Education/Training Program; Visit Provider Student in an Organized Health Care Education/Training Program
DX: N05.9 Unspecified nephritic syndrome with unspecified morphologic changes (principal); D64.9 Anemia, unspecified; N25.81 Secondary hyperparathyroidism of renal origin; R80.9 Proteinuria, unspecified
CPT/HCPCS: 36415; 80048; 82570; 83970; 84156; 85014; 85018

== ENCOUNTER → 2023-03-02 08:54 | Outpatient (CLI) | payer MEDICARE, OTHER, SELFPAY ==
--- NOTE | 2023-03-02 | DI.US.S_ITS ---
PROCEDURE: US RENAL COMPLETE INDICATIONS: KIDNEY CALCULUS TECHNIQUE: Real-time scanning was performed of the kidneys and bladder, with image documentation. COMPARISON: [facility], , US RENAL COMPLETE, 03/05/2021, 9:22. FINDINGS: Kidneys: Kidneys are normal in size. Right kidney measures the11.8 cm long; left kidney measures 11.6 cm long. Right renal cortical thickness is 1.9 cm; left renal cortical thickness is 1.6 cm. Renal cortical echotexture is normal. No hydronephrosis. No suspicious solid mass lesions. There are 3 simple right cyst which measures 3.1 cm, 2.4 cm, and 4.8 cm in diameter. There are multiple nonobstructing calculi within the left kidney, the largest of which measures 1.5 cm in diameter. There is a 1.3 cm simple left renal cyst. Bladder: Pre-void bladder volume is 431.7 mL. Post-void residual is 142.1 mL. Pre-void images demonstrate no intraluminal masses or stones. On pre-void images, bilateral ureteral jets are noted with color Doppler interrogation. (Of note, ureteral jets may not be detectable in up to 25% of cases due to insufficient differences in specific gravity between ureteral and bladder urine). Miscellaneous: No free pelvic fluid. IMPRESSION: 1. No hydronephrosis. 2. Nonobstructive left nephrolithiasis. 3. Bilateral simple renal cysts. 4. Large postvoid residual. Dictated by: Ruth Ann Whitten M.D. on 03/02/2023 at 9:34 Approved by: Ruth Ann Whitten M.D. on 03/02/2023 at 9:36
== END ==
PROVIDERS: Family Provider Internal Medicine Cardiovascular Disease; Referring Provider Urology; Visit Provider Urology
DX: N20.0 Calculus of kidney (principal); N28.1 Cyst of kidney, acquired
CPT/HCPCS: 76770

== ENCOUNTER → 2023-04-28 12:23 | Outpatient (CLI) | payer MEDICARE, OTHER, SELFPAY ==
[2023-04-28 13:50] LABS: BUN Creatinine Ratio 19.6 (6-22); Blood Urea Nitrogen 38 mg/dL (9-20); Calcium 9.1 mg/dL (8.4-10.2); Carbon Dioxide 24 mmol/L (22-32); Chloride 106 mmol/L (98-107); Estimated Glomerular Filt Rate 35 mL/min (>60); Glucose 147 mg/dL (80-110); HEMOLYSIS < 15 (0-50); Potassium 4.5 mmol/L (3.4-5.1); Sodium 140 mmol/L (137-145)
[2023-04-28 13:59] LABS: NT-proBNP (BNP-Adult 18+) 310 pg/mL (<450)
[2023-04-28 19:27] LABS: Creatinine Urine Random 70.8 mg/dL
== END ==
LOC: LAB 12:26
PROVIDERS: Family Provider Internal Medicine Cardiovascular Disease; Referring Provider Student in an Organized Health Care Education/Training Program; Visit Provider Student in an Organized Health Care Education/Training Program
DX: I50.32 Chronic diastolic (congestive) heart failure (principal); N05.9 Unspecified nephritic syndrome with unspecified morphologic changes; R80.9 Proteinuria, unspecified
CPT/HCPCS: 36415; 80048; 82570; 83880

== ENCOUNTER 2023-08-30 17:52 | Emergency (ER) | payer MEDICARE, OTHER, SELFPAY ==
[2023-08-30 18:01] VITALS: BP 127/76; PULSE 106; O2SAT 98
[2023-08-30 18:05] VITALS: BP 127/76; PULSE 94; RESP 18; TEMP 36.5; O2SAT 97; BMI 29.0
--- NOTE | 2023-08-30 19:00 | ED.EXTPRO ---
HPI - Extremity Problem General Chief complaint: Extremity Problem,Nontraumatic Stated complaint: left leg swelling, diabetic Time Seen by Provider: 08/30/23 18:05 Source: patient Mode of arrival: Ambulatory History of Present Illness HPI Narrative: 69-year-old gentleman with a history of diabetes, hypertension, coronary artery disease, he is on furosemide but has not been told he has a diagnosis of congestive heart failure he is followed by Endocrinology, Urology and Cardiology the [facility] has a director of corporate strategy in [place] and is planning to establish care with a PCP at [facility] with an appointment scheduled in October presents concerned that his left lower extremity is not improving after being started on doxycycline on August 22. He has bilateral lower extremity edema with some skin breakdown happening over the left anterior richard he would initially been appropriately treating with topical antibiotics when that did not get better he was seen in urgent care started on doxycycline feels that it is not getting better. He is concerned there is more swelling and weepage from that side. He does not feel that he is ill has not had fevers, cough, chest pain, dyspnea or orthopnea. He states that his sugars are consistently in the 100 range and staying stable, he states that he does weigh himself regularly and weight has not been increasing. Currently there are no medical records otherwise available Related Data Home Medications Medication Instructions Recorded Confirmed aspirin 81 mg tablet,delayed 81 mg PO DAILY 06/04/20 12/30/21 release (Adult Low Dose Aspirin) atorvastatin 80 mg tablet 80 mg PO DAILY 06/04/20 12/30/21 carvedilol 25 mg tablet 25 mg PO BID 06/04/20 12/30/21 dulaglutide 0.75 mg/0.5 mL 0.75 mg SUBCUT QWEEK 06/04/20 12/30/21 subcutaneous pen injector (Trulicity) furosemide 40 mg tablet 40 mg PO DAILY 06/04/20 12/30/21 glipizide 2.5 mg tablet, extended 10 mg PO DAILY #0 tabs 06/04/20 12/30/21 release 24 hr (Glucotrol XL) hydralazine 50 mg tablet 50 mg PO BID 06/04/20 12/30/21 insulin glargine 100 unit/mL (3 30 unit SUBCUT QPM 06/04/20 12/30/21 mL) subcutaneous pen lisinopril 5 mg tablet 5 mg PO DAILY 06/04/20 12/30/21 metformin 500 mg tablet,extended 1,000 mg PO BID #0 tabs 06/04/20 12/30/21 release 24hr (osmotic) (Fortamet) tadalafil 20 mg tablet 20 mg PO DAILY PRN 06/04/20 12/30/21 tadalafil 5 mg tablet 5 mg PO DAILY 06/04/20 12/30/21 Previous Rx's Medication Instructions Recorded doxycycline hyclate 100 mg capsule 100 mg PO BID #20 caps 08/23/23 Allergies Allergy/AdvReac Type Severity Reaction Status Date / Time niacin Allergy Verified 08/23/23 18:10 No Known Allergies Allergy Uncoded 08/23/23 18:10 Review of Systems Review of Systems Narrative: Pertinent positive and negative findings as per HPI Patient History Medical History (Updated 08/30/23 @ 20:57 by Renetta Nicolas MD) Chronic venous stasis Hypertension Coronary artery disease Diabetes Social History Smoking Status: Former smoker Smoking Status: Former smoker alcohol intake frequency: other Substance Use Type: does not use Exam Initial Vital Signs Initial Vital Signs: Vital Signs Temperature 97.7 F 08/30/23 18:05 Pulse Rate 94 H 08/30/23 18:05 Respiratory Rate 18 08/30/23 18:05 Blood Pressure 127/76 08/30/23 18:05 Pulse Oximetry 97 08/30/23 18:05 Oxygen Delivery Method Room Air 08/30/23 18:05 General: Healthy appearing, in no acute distress. Able to give a complete and coherent history. Well-nourished well-developed HEENT: Moist mucous membranes, normal sclera with reactive pupils, Neck: No JVD, supple Respiratory: Lungs are clear to auscultation, no wheezing no rales no rhonchi. Full and symmetrical air movement Cardiac: Regular rate and rhythm no murmurs no bruits Abdomen: Soft, nontender, good bowel tones, no flank pain Skin: Chronic venous stasis changes of both lower extremities. Left anterior richard with developing ulceration. Bilateral erythema without significant warmth or significant drainage. Neurologic: Grossly neurologically intact with no obvious asymmetries or abnormalities Extremities: No trauma, 2+ lower extremity edema bilaterally Psych: Cooperative, appropriate insight and affect Course Orders Ordered: ED Orders 08/30/23 18:15 Complete Blood Count AUTO DIFF Stat Comprehensive Metabolic Panel Stat D Dimer Stat Lactate (Lactic Acid) Stat Magnesium Stat NT-proBNP (BNP-Adult 18+) Stat Procalcitonin Stat Thyroid Stimulating Hormone Stat Troponin I Stat 08/30/23 19:20 XR tibia fibula LT 2V Stat 08/30/23 19:57 Blood Culture Stat Vital Signs Vital signs: Vital Signs - 8 hr 08/30/23 18:05 Temperature 97.7 F Pulse Rate 94 H Respiratory Rate 18 Blood Pressure 127/76 Pulse Oximetry 97 Oxygen Delivery Method Room Air MDM - Extremity (Nontraumatic) Lab Data 08/30/23 18:15 08/30/23 18:15 Labs: Lab Results 08/30/23 Range/Units 18:15 WBC 9.1 (4.5-11.0) X10^3/uL RBC 4.84 (4.5-5.9) X10^6/uL Hgb 14.8 (13.5-17.5) g/dL Hct 44.0 (41-53) % MCV 90.9 (80-100) fL MCH 30.6 (26-34) PG MCHC 33.7 (30-36) % RDW 14.5 (11.6-14.8) % Plt Count 183 (150-400) X10^3/uL Neut % (Auto) 76.4 H (50-75) % Lymph % (Auto) 13.3 L (25-40) % Nicholas % (Auto) 8.8 (3-14) % Eos % (Auto) 1.2 L (2-4) % Baso % (Auto) 0.3 (0-2) % Neut # (Auto) 7000 (1190-0837) /uL Lymph # (Auto) 1200 (2661-2402) /uL Nicholas # (Auto) 800 (0-900) /uL Eos # (Auto) 100 (0-450) /uL Baso # (Auto) 0 (0-100) /uL D-Dimer 1051 H (<500) ng/ml Sodium 140 (137-145) mmol/L Potassium 4.9 (3.4-5.1) mmol/L Chloride 107 (98-107) mmol/L Carbon Dioxide 26 (22-32) mmol/L BUN 42 H (9-20) mg/dL Creatinine 1.69 H (0.66-1.25) mg/dL Estimated GFR 41 L (>60) mL/min BUN/Creatinine Ratio 24.9 H (6-22) Glucose 99 (80-110) mg/dL Lactate 1.5 (0.7-2.1) mmol/L Calcium 9.2 (8.4-10.2) mg/dL Magnesium 2.0 (1.6-2.3) mg/dL Total Bilirubin 1.0 (0.2-1.3) mg/dL AST 27 (17-59) IU/L ALT 23 (<50) IU/L Alkaline Phosphatase 127 H (38-126) U/L Troponin I < 0.012 (0.01-0.034) ng/mL NT-Pro-B Natriuret Pep 219 (<450) pg/mL Total Protein 7.5 (6.3-8.2) g/dL Albumin 4.3 (3.5-5.0) g/dL Globulin 3.2 (1.7-4.1) g/dL Albumin/Globulin Ratio 1.3 (1.0-2.8) Procalcitonin 0.116 (<0.5) ng/mL TSH 1.07 (0.47-4.68) uIU/mL Point of Care Testing Glucose POC 92 MDM Narrative Medical decision making narrative: CC: Bilateral lower extremity erythema, developing ulceration anterior left richard, concerned that doxycycline has not improve symptoms Complicating co-morbidities: Diabetes, coronary artery disease, presumed congestive heart failure but I do not have records to document that Data collected from: patient Medical records reviewed: No records available for review Differential considered: Chronic venous stasis changes with developing ulceration, infection, sepsis Exam documented above, pertinent findings include: Patient does not appear acutely toxic, he does appear to have mild volume overload in the lower extremities without JVD or obvious pulmonary congestion. He does have reasonable blood flow and it does not look like there have been any abscesses developing Lab Test results independently reviewed as above. Pertinent findings: CBC is entirely unremarkable with white count at 9.4 neutrophils at 76.4 Chemistries show creatinine at 1.69 which is slightly improved from April. Potassium is appropriate. Lactic acid is within normal limits Magnesium is appropriate Troponin is undetectable BNP is not elevated Imaging studies independently reviewed: X-rays show prior ORIF but no new fractures or radiographic evidence of osteomyelitis Treatments: Bacitracin dressing to the wounds to the left leg. Telfa dressing and elastic wraps to both legs to help with compression. Discussion: 77-year-old gentleman with chronic venous stasis changes and ulceration developing over the left anterior richard without any evidence of infection, osteomyelitis, significant congestive heart failure or cellulitis. We talked about the importance of compression and discussed investing in compression socks. Leg elevation, increasing overall furosemide. He thinks currently he is taking 20 mg a day suggested that he increase his dose by 20 mg whether he is taking 20 at home or 40 mg at home. He will need follow up with his primary care provider regarding this. Have also suggested that he keep either bacitracin ointment or honey over the left anterior richard with a dressing on top all underneath the compression socks. We will refer him to our wound care clinic. We talked about the importance of chronic management of venous stasis ulcers and stressed the fact that there is not a single 1 time fix for this. At this point there is not any indication for hospitalization nor oral antibiotics. Questions are answered and he will be discharged Discharge Plan Departure Patient Disposition: Home Clinical Impression: Chronic cutaneous venous stasis ulcer, Bilateral edema of lower extremity Instructions: DI for Edema Due to Venous Stasis Activity Restrictions/Additional Instructions: Thank you for coming in today You actually do not have any signs of infection, sepsis, deeper abscess on the left leg and no obvious congestive heart failure You clearly have chronic venous stasis and edema. With this you are beginning to develop some ulceration on the left side. This is a management problem rather than an immediate fix problem. You need to invest in some compression socks. I would recommend looking at running compression socks rather than the medical ones. The running socks are frequently more comfortable and have equally if not more compression to them. You need to keep either bacitracin antibiotic ointment over the developing wound on the left richard or honey, honey is a very effective antibacterial agent. We will need a dressing on top of that and then the compression socks on top of this I would also recommend that you contact our wound care clinic. They specialize in these type of difficulties and can help you manage more effectively. Please call [phone] to call and schedule an appointment I also going to ask you to increase your furosemide/Lasix (the water pill, diuretic) by a total of 20 mg daily. You told me you more sure if you were taking 20 or 40 mg currently. If you were to taking 20, please increase to 40. If you are taking 40 please increase to 60. Please follow up with your director of corporate strategy within the next week or so to make sure kidney function is tolerating this change in the diuretic. If you find that you are getting worse or develop any new symptoms, please feel free to return to the emergency department for further evaluation. Prescriptions: No Action atorvastatin 80 mg tablet 80 mg PO DAILY aspirin [Adult Low Dose Aspirin] 81 mg tablet,delayed release (DR/EC) 81 mg PO DAILY lisinopril 5 mg tablet 5 mg PO DAILY insulin glargine 100 unit/mL (3 mL) insulin pen 30 unit SUBCUT QPM furosemide 40 mg tablet 40 mg PO DAILY carvedilol 25 mg tablet 25 mg PO BID Rx Instructions: must administer with a meal/food hydralazine 50 mg tablet 50 mg PO BID Trulicity 0.75 mg/0.5 mL pen injector 0.75 mg SUBCUT QWEEK tadalafil 20 mg tablet 20 mg PO DAILY PRN Rx Instructions: administer approximately 30min before sexual activity; do not use more than 1 dose per 24hrs tadalafil 5 mg tablet 5 mg PO DAILY doxycycline hyclate 100 mg capsule 100 mg PO BID Qty: 20 0RF glipizide [Glucotrol XL] 2.5 mg tablet extended release 24hr 10 mg PO DAILY Qty: 0 metformin [Fortamet] 500 mg tablet extended release 24hr 1,000 mg PO BID Qty: 0 Referrals: Miscellaneous,Doctor, MD [Primary Care Provider] - Stand Alone Forms: Patient Portal/API
--- NOTE | 2023-08-30 19:03 | PC.NURSE ---
left lower leg sores; pt on antibiotics states it has not gotten better.
--- NOTE | 2023-08-30 19:20 | DI.RAD.S_ITS ---
PROCEDURE: XR TIBIA FIBULA LT 2V INDICATIONS: non healing wound TECHNIQUE: 2 views of the tibia and fibula were acquired. COMPARISON: None. FINDINGS: Bones: Post ORIF changes are seen in distal fibular shaft and medial malleolus. No acute fracture or dislocation. No gross hardware loosening or failure. No bony erosive changes or abnormal periosteal reaction is seen. Soft tissues: No suspicious soft tissue calcifications or masses. IMPRESSION: Post ORIF changes in medial and lateral malleoli. No acute lower leg fracture or dislocation. No radiographic evidence of osteomyelitis. No gross hardware loosening or failure. Dictated by: Maury Oh M.D. on 08/30/2023 at 20:00 Approved by: Maury Oh M.D. on 08/30/2023 at 20:02
[2023-08-30 19:28] LABS: Add Manual Diff / Slide Review NO; Basophils Absolute Auto 0 /uL (0-100); Basophils Percent Auto 0.3 % (0-2); Eosinophils Absolute Auto 100 /uL (0-450); Eosinophils Percent Auto 1.2 % (2-4); Hemoglobin 14.8 g/dL (13.5-17.5); Lymphocytes Absolute Auto 1200 /uL (1100-4500); Lymphocytes Percent Auto 13.3 % (25-40); Mean Corpuscular HGB Conc 33.7 % (30-36); Mean Corpuscular Hemoglobin 30.6 PG (26-34); Mean Corpuscular Volume 90.9 fL (80-100); Monocytes Absolute Auto 800 /uL (0-900); Monocytes Percent Auto 8.8 % (3-14); Neutrophils Absolute Auto 7000 /uL (1500-7000); Neutrophils Percent Auto 76.4 % (50-75); Platelet Count 183 X10^3/uL (150-400); Red Blood Cell Count 4.84 X10^6/uL (4.5-5.9); Red Cell Distribution Width 14.5 % (11.6-14.8); White Blood Cell Count 9.1 X10^3/uL (4.5-11.0)
[2023-08-30 19:32] LABS: D Dimer 1051 ng/ml (<500)
[2023-08-30 19:36] LABS: Alanine Aminotransferase 23 IU/L (<50); Albumin 4.3 g/dL (3.5-5.0); Albumin Globulin Ratio 1.3 (1.0-2.8); Alkaline Phosphatase 127 U/L (38-126); Aspartate Aminotransferase 27 IU/L (17-59); BUN Creatinine Ratio 24.9 (6-22); Blood Urea Nitrogen 42 mg/dL (9-20); Calcium 9.2 mg/dL (8.4-10.2); Carbon Dioxide 26 mmol/L (22-32); Chloride 107 mmol/L (98-107); Estimated Glomerular Filt Rate 41 mL/min (>60); Globulin 3.2 g/dL (1.7-4.1); Glucose 99 mg/dL (80-110); HEMOLYSIS < 15 (0-50); Lactate (Lactic Acid) 1.5 mmol/L (0.7-2.1); Potassium 4.9 mmol/L (3.4-5.1); Sodium 140 mmol/L (137-145); Total Protein 7.5 g/dL (6.3-8.2)
[2023-08-30 19:48] LABS: NT-proBNP (BNP-Adult 18+) 219 pg/mL (<450); Troponin I < 0.012 ng/mL (0.01-0.034)
[2023-08-30 19:53] LABS: Procalcitonin 0.116 ng/mL (<0.5)
[2023-08-30 20:13] LABS: Thyroid Stimulating Hormone 1.07 uIU/mL (0.47-4.68)
[2023-08-30 21:23] VITALS: PULSE 75; O2SAT 93
[2023-08-30 21:24] VITALS: BP 155/83; PULSE 75; O2SAT 98
[2023-08-30] MEDS: FUROSEMIDE 60 MG in SODIUM CHLORIDE 0.9% 50 ML 112 MG IV (21:24)
[2023-08-30] MEDS: BACITRACIN OINT 0.9 GM PCKT 5 APPLIC TOP (21:24)
[2023-08-30 21:30] VITALS: BP 148/83; PULSE 74; O2SAT 98
== END 2023-08-30 21:57 | disposition home or self-care (01) ==
PROVIDERS: Emergency Provider Emergency Medicine; Family Provider Internal Medicine Cardiovascular Disease
DX: R60.0 Localized edema (principal); I83.028 Varicose veins of left lower extremity with ulcer other part of lower leg; L97.821 Non-pressure chronic ulcer of other part of left lower leg limited to breakdown of skin
CPT/HCPCS: 36415; 73590; 80053; 82962; 83605; 83735; 83880; 84145; 84443; 84484; 85025; 85379; 87040; 96365; 99284; J1940

== ENCOUNTER → 2023-09-05 09:39 | Outpatient (CLI) | payer MEDICARE, OTHER, SELFPAY | PROVIDERS: Family Provider Internal Medicine Cardiovascular Disease; Referring Provider Emergency Medicine; Visit Provider Surgery | DX: L97.821 Non-pressure chronic ulcer of other part of left lower leg limited to breakdown of skin (principal); I87.2 Venous insufficiency (chronic) (peripheral); E11.622 Type 2 diabetes mellitus with other skin ulcer; R60.0 Localized edema; L53.9 Erythematous condition, unspecified; I25.10 Atherosclerotic heart disease of native coronary artery without angina pectoris | CPT/HCPCS: 87070; 87077; 87147; 87186; 87205; 99203; 99213 ==

== ENCOUNTER → 2023-09-12 10:05 | Outpatient (CLI) | payer MEDICARE, OTHER, SELFPAY | LOC: WC 10:07 | PROVIDERS: Family Provider Internal Medicine Cardiovascular Disease; Referring Provider Emergency Medicine; Visit Provider Surgery | DX: Z09 Encounter for follow-up examination after completed treatment for conditions other than malignant neoplasm (principal); Z87.2 Personal history of diseases of the skin and subcutaneous tissue; L97.821 Non-pressure chronic ulcer of other part of left lower leg limited to breakdown of skin; I87.2 Venous insufficiency (chronic) (peripheral) | CPT/HCPCS: 99212; 99213 ==

== ENCOUNTER → 2023-12-05 17:24 | Outpatient (CLI) | payer MEDICARE, OTHER, SELFPAY ==
[2023-12-05 17:51] LABS: Hematocrit 42.2 % (41-53)
[2023-12-05 18:07] LABS: BUN Creatinine Ratio 26.6 (6-22); Blood Urea Nitrogen 45 mg/dL (9-20); Calcium 9.3 mg/dL (8.4-10.2); Carbon Dioxide 25 mmol/L (22-32); Chloride 107 mmol/L (98-107); Estimated Glomerular Filt Rate 41 mL/min (>60); Glucose 136 mg/dL (80-110); HEMOLYSIS < 15 (0-50); Potassium 4.5 mmol/L (3.4-5.1); Sodium 138 mmol/L (137-145)
[2023-12-05 18:09] LABS: Creatinine Urine Random 31.25 mg/dL; Protein (Total) Urine Random 11 mg/dL (0-12); Protein Creatinine Ratio Urine 0.35 GRAM/24H
[2023-12-05 18:17] LABS: NT-proBNP (BNP-Adult 18+) 209 pg/mL (<450)
== END ==
PROVIDERS: Family Provider Internal Medicine Cardiovascular Disease; Referring Provider Student in an Organized Health Care Education/Training Program; Visit Provider Student in an Organized Health Care Education/Training Program
DX: I50.32 Chronic diastolic (congestive) heart failure (principal); N05.9 Unspecified nephritic syndrome with unspecified morphologic changes; D70.9 Neutropenia, unspecified; R80.9 Proteinuria, unspecified; N25.81 Secondary hyperparathyroidism of renal origin; D63.1 Anemia in chronic kidney disease
CPT/HCPCS: 36415; 80048; 82570; 83880; 83970; 84156; 85014; 85018

== ENCOUNTER → 2024-06-11 14:01 | Outpatient (CLI) | payer MEDICARE, OTHER, SELFPAY ==
[2024-06-11 14:43] LABS: Hematocrit 45.1 % (41-53); Hemoglobin 15.3 g/dL (13.5-17.5)
[2024-06-11 15:04] LABS: BUN Creatinine Ratio 15.4 (6-22); Blood Urea Nitrogen 33 mg/dL (9-20); Calcium 9.3 mg/dL (8.4-10.2); Carbon Dioxide 28 mmol/L (22-32); Chloride 100 mmol/L (98-107); Cholesterol 141 mg/dL (140-199); Estimated Glomerular Filt Rate 31 mL/min (>60); Glucose 290 mg/dL (80-110); HDL Cholesterol 26 mg/dL (40-60); HEMOLYSIS < 15 (0-50); LDL Cholesterol Calculated 70 mg/dL (<100); Sodium 137 mmol/L (137-145); Triglycerides 225 mg/dL (35-150)
[2024-06-11 15:14] LABS: NT-proBNP (BNP-Adult 18+) 178 pg/mL (<450)
[2024-06-11 15:26] LABS: Protein (Total) Urine Random 27 mg/dL (0-12); Protein Creatinine Ratio Urine 0.53 GRAM/24H
== END ==
PROVIDERS: Family Provider Internal Medicine Cardiovascular Disease; Referring Provider Student in an Organized Health Care Education/Training Program; Visit Provider Student in an Organized Health Care Education/Training Program
DX: I50.32 Chronic diastolic (congestive) heart failure (principal); N05.9 Unspecified nephritic syndrome with unspecified morphologic changes; D70.9 Neutropenia, unspecified; D63.1 Anemia in chronic kidney disease; E78.5 Hyperlipidemia, unspecified; N25.81 Secondary hyperparathyroidism of renal origin; R80.9 Proteinuria, unspecified
CPT/HCPCS: 36415; 80048; 80061; 82570; 83880; 83970; 84156; 85014; 85018

== ENCOUNTER → 2024-06-25 11:00 | Outpatient (CLI) | payer MEDICARE, OTHER, SELFPAY ==
--- NOTE | 2024-06-25 11:03 | DI.US.S_ITS ---
PROCEDURE: US RENAL COMPLETE INDICATIONS: Acute on chronic renal failure TECHNIQUE: Real-time scanning was performed of the kidneys and bladder, with image documentation. COMPARISON: [facility], CT, CT ABDOMEN PELVIS WO/W CON, 05/08/2019, 15:42. [facility], US, US RENAL COMPLETE, 03/02/2023, 9:08. FINDINGS: Kidneys: Kidneys are normal in size. Right kidney measures 13.6 cm long; left kidney measures 11 cm long. Right renal cortical thickness is 1.5 cm; left renal cortical thickness is 2 cm. No hydronephrosis. No stones identified. -Right mid mass measuring 3.4 cm. (Previously measured 2.3 cm). No internal vascularity. -Right kidney superior pole cyst measuring 6.1 cm. -Right kidney inferior pole cyst measuring 2.9 cm. -Left kidney superior pole cyst measuring 1.3 cm. -Left kidney inferior pole cyst measuring 1.5 cm. Bladder: Bladder volume 180 cc. Patient unable to void. No intraluminal masses or stones. On pre-void images, both ureteral jets are noted with color Doppler interrogation. (Of note, ureteral jets may not be detectable in up to 25% of cases due to insufficient differences in specific gravity between ureteral and bladder urine). Miscellaneous: No free pelvic fluid. IMPRESSION: 1. No hydronephrosis. 2. Right mid kidney mass or complicated cyst measuring 3.4 cm. Appears increased. -Recommend further evaluation with renal protocol CT or MRI with IV contrast. 3. Bladder volume 180 cc. Dictated by: Dennis Petty M.D. on 06/25/2024 at 14:08 Approved by: Dennis Petty M.D. on 06/25/2024 at 14:18
[2024-06-25 14:39] LABS: BUN Creatinine Ratio 18.4 (6-22); Blood Urea Nitrogen 32 mg/dL (9-20); Calcium 9.2 mg/dL (8.4-10.2); Carbon Dioxide 29 mmol/L (22-32); Chloride 99 mmol/L (98-107); Estimated Glomerular Filt Rate 39 mL/min (>60); Glucose 224 mg/dL (80-110); HEMOLYSIS < 15 (0-50); Potassium 4.1 mmol/L (3.4-5.1); Sodium 137 mmol/L (137-145)
[2024-06-25 14:47] LABS: NT-proBNP (BNP-Adult 18+) 290 pg/mL (<450)
== END ==
PROVIDERS: Family Provider Internal Medicine Cardiovascular Disease; Referring Provider Student in an Organized Health Care Education/Training Program; Visit Provider Student in an Organized Health Care Education/Training Program
DX: N17.9 Acute kidney failure, unspecified (principal); N18.9 Chronic kidney disease, unspecified; N28.1 Cyst of kidney, acquired; I50.32 Chronic diastolic (congestive) heart failure; N05.9 Unspecified nephritic syndrome with unspecified morphologic changes; Z87.442 Personal history of urinary calculi
CPT/HCPCS: 36415; 76770; 80048; 83880

== ENCOUNTER → 2024-07-15 09:14 | Outpatient (CLI) | payer MEDICARE, OTHER, SELFPAY ==
--- NOTE | 2024-07-15 | DI.MRI.S_ITS ---
PROCEDURE: MR ABDOMEN WO CON INDICATIONS: RIGHT RENAL CYST TECHNIQUE: Coronal HASTE through the abdomen, axial 2-D FLASH in- and [id number], and breath-hold T2 FSE with fat saturation through the biliary system and pancreas. Oblique coronal and axial thin-slice HASTE, radial thick-slab HASTE centered on the extrahepatic bile ducts. COMPARISON: [facility], US, US RENAL COMPLETE, 06/25/2024, 11:10. [facility], CT, CT ABDOMEN PELVIS WO/W CON, 05/08/2019, 15:42. FINDINGS: Image quality: Diagnostic, allowing for noncontrast technique Lower chest: Unremarkable lung bases Liver: Unremarkable Gallbladder and biliary system: Gallbladder is absent. Nondilated biliary system allowing for postsurgical state Pancreas: No ductal dilation Spleen: Nonenlarged Adrenals: No discrete nodules Kidneys: Multiple renal cysts are again seen. 2.8 cm left upper pole indeterminate lesion is present (01/04). There are areas of fluid and intermediate intensity. This is slightly larger than prior imaging. 3.4 cm intermediate intensity lesion is seen in the right mid kidney, with peripheral possible calcifications and hemorrhagic products. This is also larger than prior imaging in 2019. No hydronephrosis Vessels and lymph nodes: No abdominal aortic aneurysm. No enlarged lymph nodes by size criteria Bowel and peritoneum: No small bowel obstruction. No pathologic ascites. Body wall: Unremarkable Bones: No aggressive appearing osseous abnormality. IMPRESSION: Intermediate intensity lesions in the right mid pole and left upper pole are slightly larger than prior imaging in 2019. These are not completely assessed without intravenous contrast. Consider renal protocol CT or MRI follow-up versus sampling versus urologic consultation Other findings above. Dictated by: Vince Crowder M.D. on 07/16/2024 at 9:32 Approved by: Vince Crowder M.D. on 07/16/2024 at 9:38
== END ==
LOC: MRI 09:15
PROVIDERS: Family Provider Internal Medicine Cardiovascular Disease; PCP Family Medicine; Referring Provider Student in an Organized Health Care Education/Training Program; Visit Provider Student in an Organized Health Care Education/Training Program
DX: N28.1 Cyst of kidney, acquired (principal); N28.9 Disorder of kidney and ureter, unspecified; Z90.49 Acquired absence of other specified parts of digestive tract
CPT/HCPCS: 74181

== ENCOUNTER → 2024-07-20 15:47 | Outpatient (CLI) | payer MEDICARE, OTHER, SELFPAY ==
--- NOTE | 2024-07-20 15:50 | DI.MRI.S_ITS ---
PROCEDURE: MR ABDOMEN RENAL PROTOCOL INDICATIONS: STAGE 3B CKD,RENAL MASS TECHNIQUE: Coronal HASTE through abdomen and pelvis; axial 2D FLASH in- and [id number] (with and without fat saturation), and breath-hold T2 FSE from the hepatic dome to the bottom of the kidneys. Coronal HASTE MR urogram of kidneys and bladder. Dynamic coronal VIBE during IV gadolinium administration; postgadolinium axial VIBE or 2D FLASH with fat saturation from the hepatic dome through the kidneys. COMPARISON: [facility], US, US RENAL COMPLETE, 06/25/2024, 11:10. [facility], MR, MR ABDOMEN WO CON, 07/15/2024, 9:29. FINDINGS: Image quality: Diagnostic. Kidneys and Ureters: Symmetric renal size. No hydronephrosis. Numerous cortical cysts bilaterally. A 3.4 cm partially exophytic, T2 hypointense lesion demonstrating T1 isointensity to cortex arises from the lateral right mid pole. A few curvilinear foci demonstrating prominent T1 and T2 hypointensity there are seen peripheral to this lesion. T1 and T2 hypointense 2.7 cm partially exophytic mass arises from the left upper pole. This partially encroaches on one of the upper pole calices. Both of these masses demonstrate gradual, homogeneous and internal enhancement, overall greater than the other numerous cortical cysts. Questionable internal thin enhancing septation in each lesion versus artifact. There is restricted diffusion in both lesions. OTHER: Lung bases: No pleural or pericardial effusion. Liver: No solid mass. Gallbladder: Surgically absent. Biliary ducts: Appropriate biliary tree caliber post cholecystectomy. Pancreas: Normal size and signal. No pancreatic ductal dilatation. Spleen: Size is within normal limits. Adrenal Glands: No adrenal nodules. Stomach and Bowel: Stomach and visible bowel loops are within normal limits. Peritoneum: No abnormal intraperitoneal fluid. No free air. Ventral Wall: No hernia. Abdominal Nodes: No retroperitoneal or mesenteric adenopathy by size criteria. Vessels: Aorta and inferior vena cava are normal in size. Bones: No aggressive osseous abnormality. IMPRESSION: Solid-appearing bilateral renal masses with mild enhancement and similar signal characteristics have enlarged since 2019. These are both suspicious for neoplasm although do not demonstrate robust enhancement characteristics of renal cell carcinoma. The right lesion is amenable to percutaneous CT-guided biopsy. Dictated by: Meredith Malone M.D. on 07/23/2024 at 9:54 Approved by: Meredith Malone M.D. on 07/23/2024 at 10:36
== END ==
PROVIDERS: Family Provider Internal Medicine Cardiovascular Disease; PCP Family Medicine; Referring Provider Registered Nurse; Visit Provider Registered Nurse
DX: N18.32 Chronic kidney disease, stage 3b (principal); N28.89 Other specified disorders of kidney and ureter; N28.1 Cyst of kidney, acquired; Z90.49 Acquired absence of other specified parts of digestive tract
CPT/HCPCS: 74183; A9579

== ENCOUNTER → 2024-08-10 17:31 | Outpatient (CLI) | payer MEDICARE, OTHER, SELFPAY ==
[2024-08-10 17:48] LABS: Hematocrit 42.3 % (41-53); Hemoglobin 14.5 g/dL (13.5-17.5)
[2024-08-10 17:59] LABS: BUN Creatinine Ratio 17.2 (6-22); Blood Urea Nitrogen 31 mg/dL (9-20); Calcium 9.3 mg/dL (8.4-10.2); Carbon Dioxide 31 mmol/L (22-32); Chloride 101 mmol/L (98-107); Estimated Glomerular Filt Rate 38 mL/min (>60); Glucose 134 mg/dL (70-99); HEMOLYSIS 17 (0-50); Potassium 3.9 mmol/L (3.4-5.1); Sodium 141 mmol/L (137-145)
[2024-08-10 18:09] LABS: NT-proBNP (BNP-Adult 18+) 408 pg/mL (<450)
[2024-08-12 10:36] LABS: Parathyroid Hormone Int 110 pg/mL (15-65)
== END ==
PROVIDERS: Family Provider Internal Medicine Cardiovascular Disease; PCP Family Medicine; Referring Provider Family Medicine; Visit Provider Student in an Organized Health Care Education/Training Program
DX: I50.32 Chronic diastolic (congestive) heart failure (principal); N05.9 Unspecified nephritic syndrome with unspecified morphologic changes; D70.9 Neutropenia, unspecified; N25.81 Secondary hyperparathyroidism of renal origin; D63.1 Anemia in chronic kidney disease
CPT/HCPCS: 36415; 80048; 83880; 83970; 85014; 85018

== ENCOUNTER → 2024-10-09 14:10 | Outpatient (CLI) | payer MEDICARE, OTHER, SELFPAY | LOC: WC 14:12 | PROVIDERS: Family Provider Internal Medicine Cardiovascular Disease; PCP Family Medicine; Referring Provider Physician Assistant; Visit Provider Surgery | DX: I87.2 Venous insufficiency (chronic) (peripheral) (principal); L97.812 Non-pressure chronic ulcer of other part of right lower leg with fat layer exposed; R60.0 Localized edema; L03.115 Cellulitis of right lower limb; E11.622 Type 2 diabetes mellitus with other skin ulcer; I12.9 Hypertensive chronic kidney disease with stage 1 through stage 4 chronic kidney disease, or unspecified chronic kidney disease; N18.9 Chronic kidney disease, unspecified; Z85.46 Personal history of malignant neoplasm of prostate; I25.2 Old myocardial infarction; R01.1 Cardiac murmur, unspecified; J43.9 Emphysema, unspecified; I25.10 Atherosclerotic heart disease of native coronary artery without angina pectoris | CPT/HCPCS: 11042; 87070; 87075; 87077; 87147; 87186; 87205; 99213; 99214 ==

== ENCOUNTER → 2025-02-06 13:54 | Outpatient (CLI) | payer MEDICARE, OTHER, SELFPAY ==
--- NOTE | 2025-02-06 13:55 | DI.ECHO.S_ITS ---
[facility]---------+ [facility] : : [address] : : [place] : : [id number] : : Phone: [phone] Echocardiogram Report + + :Name: STELLA SCOTT Study Date: 02/06/2025 Height: 71 in : :[facility] ReadingLocation: Weight: 200 lb : : Gender: Male BSA: 2.1 m2 : :: 1945 Age: 79 yrs BP: 136/87 mmHg: :Reason For Study: CAD : :Ordering Physician: ABILIO, : :DIMITRI Performed By: Lincoln Flores : :Referring: DIMITRI KNOX : + + Interpretation Summary - The left ventricular contractility is normal. Estimated ejection fraction is greater than 65% with no segmental wall motion abnormalities. Mild concentric LVH. Normal diastolic function. - The right ventricular contractility is normal. - All cardiac chambers are of normal size. - Mild aortic valvular stenosis with peak velocity of 1.7 m/s with mean gradient of 6.5 mmHg and dimensionless index of 0.50. - No obvious intracardiac shunts. - No obvious intracardiac masses nor thrombi. - No hemodynamically significant pericardial effusion. - Low right-sided filling pressures. - Mildly dilated ascending thoracic aorta without obvious dissection. Conclusion: Normal biventricular function with mild aortic valvular stenosis. When compared with previous echocardiogram, there does appear to be a mild increase in the degree of aortic valvular stenosis. Procedure: A two-dimensional transthoracic echocardiogram with color flow and Doppler was performed. The study quality was technically adequate. Comparison is made with the echocardiogram of 11/02/2024. The patient was in normal sinus rhythm during the exam. Left Ventricle: The left ventricle is normal in size. Left ventricular wall thickness is mildly increased. Left ventricular systolic function is normal. The ejection fraction is estimated to be 65-70%. Normal diastolic function. Right Ventricle: The right ventricle is normal in size and function. Atria: The left atrial size is normal. Right atrial size is normal. There is no Doppler evidence for an interatrial shunt. Mitral Valve: The mitral valve leaflets appear to open well. There is no mitral valve stenosis. There is trace mitral regurgitation. Aortic Valve: The aortic valve is trileaflet. The aortic valve opens well. The aortic valve is mildly calcified. There is mild aortic stenosis. The calculated aortic valve area is 1.8 cm2. The peak aortic velocity is 1.7 m/sec. The aortic valve mean gradient is 6.5 mmHg. sev ratio: 0.50. No aortic regurgitation is present. Tricuspid Valve: The tricuspid valve is not well visualized, but is grossly normal. There is trace tricuspid regurgitation. Pulmonary artery pressures cannot be estimated because of the lack of a measurable TR jet velocity but the IVC suggests a CVP of around 3 mmHg. Pulmonic Valve: The pulmonic valve is not well seen, but is grossly normal. There is trace pulmonic regurgitation. Great Vessels: There is aortic root sclerosis/calcification. The aortic root is normal size. Based on patients BSA the proximal ascending aorta is mildly dilated with a max diameter of 4.1 cm. This is unchanged compared to the previous study. The aortic arch could not be visualized. The pulmonary is not well visualized. The IVC is of normal diameter and collapses greater than 50% with a sniff. This suggests a low right atrial pressure of 3 mm Hg. Pericardium/ Pleura There is no pericardial effusion. MMode/2D Measurements & Calculations LVIDd: 3.7 cm LVOT diam: 2.1 cm LVIDs: 2.6 cm Ao root diam: 3.3 cm FS: 31.0 % asc Aorta Diam: 4.0 cm IVSd: 1.3 cm LVPWd: 1.3 cm LV hayden. diameter/BSA (cm/m^2): 1.8 LV sys. diameter/BSA (cm/m^2): 1.2 LA A2 area: 12.7 cm2 RA long axis: 5.3 cm LA A4 area: 14.5 cm2 RA area: 13.1 cm2 LA length (vol): 4.9 cm RA vol: 28.0 ml LA vol: 32.0 ml RA : 13.3 ml/m2 LA vol index: 15.2 ml/m2 IVC diam: 1.5 cm RVD1 (basal): 2.6 cm RVD2 (mid): 2.5 cm TAPSE: 2.5 cm Doppler Measurements & Calculations Ao V2 max: 172.2 cm/sec LVOT Max Jean Carlos: 95.2 cm/sec Ao V2 mean: 119.5 cm/sec LV V1 max P.6 mmHg Ao max P.9 mmHg LV V1 VTI: 17.0 cm Ao mean P.5 mmHg ANGEL(I,D): 1.7 cm2 Ao V2 VTI: 33.8 cm ANGEL(V,D): 1.8 cm2 sev ratio: 0.50 ANGEL indexed to BSA (cm^2/m^2): 0.80 MV E max jean carlos: 55.7 cm/sec PA V2 max: 90.8 cm/sec MV A max jean carlos: 77.2 cm/sec PA V2 mean: 57.1 cm/sec MV E/A: 0.72 PA mean P.6 mmHg Med Peak E' Jean Carlos: 5.4 cm/sec PA pr(Accel): 32.8 mmHg E/E' med: 10.4 Lat Peak E' Jean Carlos: 6.5 cm/sec E/E' lat: 8.6 E/e' average: 9.5 MV dec time: 0.14 sec SV(LVOT): 56.7 ml Reading Physician:CONCEPCION
== END ==
LOC: ECHO 13:55
PROVIDERS: Family Provider Internal Medicine Cardiovascular Disease; PCP Family Medicine; Referring Provider Physician Assistant; Visit Provider Physician Assistant
DX: I35.0 Nonrheumatic aortic (valve) stenosis (principal); I25.10 Atherosclerotic heart disease of native coronary artery without angina pectoris; R01.1 Cardiac murmur, unspecified; I83.009 Varicose veins of unspecified lower extremity with ulcer of unspecified site; I83.899 Varicose veins of unspecified lower extremity with other complications; R60.9 Edema, unspecified; L97.909 Non-pressure chronic ulcer of unspecified part of unspecified lower leg with unspecified severity
CPT/HCPCS: 93306